=== PATIENT | male | born 1960 | race African-American/Black ===

== ENCOUNTER 2018-07-14 15:51 | Emergency (ER) | payer MEDICAID ==
[~2018-07-14] VITALS: Ht 167.6 cm; Wt 105.2 kg
[2018-07-14] MEDS ORDERED: fentaNYL PF VIAL 100 MCG/2 ML VIAL IV ONE (16:15)
[2018-07-14 16:19] LABS: BASO % 1 % (0-3); EOS % 1 % (0-3); HEMATOCRIT 46.5 % (39.0-53.0); HEMOGLOBIN 14.9 g/dL (13.0-17.5); LYMPH # 1.8 x10^3/uL (1.0-4.8); LYMPH % 34 % (24-48); MEAN CORPUSCULAR HEMOGLOBIN 26 pg (25-35); MEAN CORPUSCULAR HGB CONC 32 g/dL (31-37); MEAN CORPUSCULAR VOLUME 81 fL (79-100); MONO # 0.5 x10^3/uL (0.0-1.1); MONO % 10 % (0-9); NEUT # 2.9 x10^3uL (1.8-7.7); NEUT % 55 % (31-73); PLATELET COUNT 131 x10^3/uL (140-400); RED BLOOD COUNT 5.77 x10^6/uL (4.30-5.70); RED CELL DISTRIBUTION WIDTH 16.3 % (11.5-14.5); WHITE BLOOD COUNT 5.4 x10^3/uL (4.0-11.0)
[2018-07-14 16:26] LABS: CALCIUM 9.6 mg/dL (8.5-10.1); CREATININE 1.8 mg/dL (0.7-1.3); GFR 39.4; POTASSIUM 3.6 mmol/L (3.5-5.1)
[2018-07-14] MEDS ORDERED: DIPHTH,PERTUSS(ACELL),TET TOX 0.5 ML DISP.SYRIN. VAX IM ONE (16:30)
--- NOTE | 2018-07-14 17:13 | PHYS DOC ---
Past Medical History Past Medical History: Hypertension Past Surgical History: No Surgical History Smoking: Cigarettes Alcohol Use: Occasionally Drug Use: None Adult General Chief Complaint Chief Complaint: TRAUMA ALERT, right middle finger injury HPI HPI Patient is a 57 year old 57 right-handed male who presents with complaining of injury to right middle finger. Patient states he was trying to move a dresser e fell on tip of right middle finger with partial amputation of his finger. Patient rated his pain 10 over 10 and is other injuries or focal neuro deficit. Patient is not up-to-date with tetanus summarization.The case was activated as a trauma alert. Review of Systems Review of Systems Constitutional: Denies fever or chills [] Eyes: Denies change in visual acuity, redness, or eye pain [] HENT: Denies nasal congestion or sore throat [] Respiratory: Denies cough or shortness of breath [] Cardiovascular: No additional information not addressed in HPI [] GI: Denies abdominal pain, nausea, vomiting, bloody stools or diarrhea [] : Denies dysuria or hematuria [] Musculoskeletal: Denies back pain, reports joint pain [] Integument: Denies rash or skin lesions [] Neurologic: Denies headache, focal weakness or sensory changes [] Endocrine: Denies polyuria or polydipsia [] All other systems were reviewed and found to be within normal limits, except as documented in this note. Current Medications Current Medications Current Medications Medications (Trade) Dose Ordered Sig/Chanda Start Time Stop Time Status Last Admin Dose Admin Acetaminophen/ Hydrocodone Bitart (Lortab 5/325) 2 tab 1X ONCE 07/14/18 17:30 07/14/18 17:31 DC 07/14/18 17:16 2 TAB Cefazolin Sodium 50 ml @ 100 mls/hr 1X ONCE 07/14/18 16:15 07/14/18 16:44 DC 07/14/18 16:28 100 MLS/HR Diphtheria/ Tetanus/Acell Pertussis (Boostrix) 0.5 ml ONCE ONCE 07/14/18 16:30 07/14/18 16:31 DC 07/14/18 17:17 0.5 ML Fentanyl Citrate (Fentanyl 2ml Vial) 50 mcg 1X ONCE 07/14/18 16:15 07/14/18 16:16 DC 07/14/18 16:27 50 MCG Allergies Allergies Allergies Coded Allergies Type Severity Reaction Last Updated Verified No Known Drug Allergies 07/14/18 No Physical Exam Physical Exam Constitutional: Well developed, well nourished, mild distress, non-toxic appearance, smell of alcohol on breath. [] HENT: Normocephalic, atraumatic. Eyes: PERRLA, EOMI, conjunctiva normal, no discharge. [] Neck: Normal range of motion, no tenderness, supple, no stridor. [] Cardiovascular:Heart rate regular rhythm, no murmur [] Lungs & Thorax: Bilateral breath sounds clear to auscultation [] Extremities: Right middle finger with missing distal part of distal phalanx of finger and part of nailbed with mild bleeding, ROM intact, no edema. [] Neurologic: Alert and oriented X 3, normal motor function, normal sensory function, no focal deficits noted. [] Psychologic: Affect anxious, judgement normal, mood normal. [] Current Patient Data Vital Signs Vital Signs Date Time Temp Pulse Resp B/P (MAP) Pulse Ox O2 Delivery O2 Flow Rate FiO2 07/14/18 18:20 16 Room Air 07/14/18 18:00 82 139/84 (102) 95 07/14/18 15:56 98.6 98.6 Lab Values Laboratory Tests Test 07/14/18 16:10 White Blood Count 5.4 x10^3/uL (4.0-11.0) Red Blood Count 5.77 x10^6/uL (4.30-5.70) H Hemoglobin 14.9 g/dL (13.0-17.5) Hematocrit 46.5 % (39.0-53.0) Mean Corpuscular Volume 81 fL (79-100) Mean Corpuscular Hemoglobin 26 pg (25-35) Mean Corpuscular Hemoglobin Concent 32 g/dL (31-37) Red Cell Distribution Width 16.3 % (11.5-14.5) H Platelet Count 131 x10^3/uL (140-400) L Neutrophils (%) (Auto) 55 % (31-73) Lymphocytes (%) (Auto) 34 % (24-48) Monocytes (%) (Auto) 10 % (0-9) H Eosinophils (%) (Auto) 1 % (0-3) Basophils (%) (Auto) 1 % (0-3) Neutrophils # (Auto) 2.9 x10^3uL (1.8-7.7) Lymphocytes # (Auto) 1.8 x10^3/uL (1.0-4.8) Monocytes # (Auto) 0.5 x10^3/uL (0.0-1.1) Eosinophils # (Auto) 0.0 x10^3/uL (0.0-0.7) Basophils # (Auto) 0.0 x10^3/uL (0.0-0.2) Sodium Level 140 mmol/L (136-145) Potassium Level 3.6 mmol/L (3.5-5.1) Chloride Level 103 mmol/L (98-107) Carbon Dioxide Level 27 mmol/L (21-32) Anion Gap 10 (6-14) Blood Urea Nitrogen 24 mg/dL (8-26) Creatinine 1.8 mg/dL (0.7-1.3) H Estimated GFR (Cockcroft-Gault) 39.4 Glucose Level 108 mg/dL (70-99) H Calcium Level 9.6 mg/dL (8.5-10.1) Ethyl Alcohol Level 57 mg/dL (0-10) H Laboratory Tests 07/14/18 16:10 Laboratory Tests 07/14/18 16:10 EKG EKG [] Radiology/Procedures Radiology/Procedures [facility] [address] [place] [address] IMAGING REPORT Signed PATIENT: HAYDEN DALTNO ACCOUNT: [id number] : 1960 LOCATION: ER AGE: 57 SEX: M EXAM STATUS: DEP ER ORD. PHYSICIAN: SOLEDAD MUNSON MD REASON: right middle finger injury PROCEDURE: FINGER(S) RIGHT Three views right finger: Clinical History: Laceration to tip of middle finger. Technique: AP view of the hand, as well as lateral and oblique collimated views of the middle finger were obtained. Comparison: None. Findings: There is laceration of soft tissues of the tip of the middle finger and there is deformity of the tuft. The remaining visualized osseous structures appear normal. Impression: Probable avulsion of a portion of the tuft of the middle finger. Electronically signed by: Lyric Wheeler III, MD (07/14/2018 7:59 PM) [id number] DICTATED and SIGNED BY: LYRIC WHEELER III, MD DATE: 07/14/181958 Course & Med Decision Making Course & Med Decision Making Pertinent Labs and Imaging studies reviewed. (See chart for details) Evaluation of patient in ER showed 57 y/o male with traumatic amputation of tip of right middle finger without need for suture . Nonadhesive dressing was applied and ABX and Tdap was given beside IV and oral pain medication and patient was advised to follow up with oncall orthopedic surgeon. Dragon Disclaimer Dragon Disclaimer This electronic medical record was generated, in whole or in part, using a voice recognition dictation system. Departure Departure Impression: Primary Impression: Traumatic amputation of tip of finger of left hand Additional Impression: Alcohol abuse Disposition: HOME, SELF-CARE (at 1810) Condition: IMPROVED Referrals: PADMINI JIMENEZ II, MD Patient Instructions: Fingertip Injuries and Amputations Additional Instructions: Follow up with orthopedic on-call in 2-3 days Scripts Cephalexin (KEFLEX) 500 Mg Capsule 2 CAP PO Q12HR, #40 CAP Prov: SOLEDAD MUNSON MD 07/15/18 Hydrocodone/Apap 5-325 (NORCO 5-325 TABLET) 1 Each Tablet 1-2 TAB PO Q4-6HRS for pain, #14 TAB Prov: SOLEDAD MUNSON MD 07/14/18 Problem Qualifiers SOLEDAD MUNSON MD Jul 14, 2018 17:13
[2018-07-14] MEDS ORDERED: HYDROcodone/APAP 5/325MG 1 TAB TABLET PO ONE (17:30)
[2018-07-14 18:00] VITALS: BP 139/84
[2018-07-14] MEDS ORDERED: HYDR-3164 PO (18:15)
--- NOTE | 2018-07-14 20:02 | RAD ---
Three views right finger: Clinical History: Laceration to tip of middle finger. Technique: AP view of the hand, as well as lateral and oblique collimated views of the middle finger were obtained. Comparison: None. Findings: There is laceration of soft tissues of the tip of the middle finger and there is deformity of the tuft. The remaining visualized osseous structures appear normal. Impression: Probable avulsion of a portion of the tuft of the middle finger. Electronically signed by: Zachary Kelly III, MD (07/14/2018 7:59 PM) [id number]
[2018-07-15] MEDS ORDERED: CEPH-264 PO (06:30)
== END 2018-07-14 18:24 | disposition home or self-care (01) ==
LOC: ER 15:51
DX: S68.122A Partial traumatic metacarpophalangeal amputation of right middle finger, initial encounter (principal); I10 Essential (primary) hypertension; F10.10 Alcohol abuse, uncomplicated; Y90.2 Blood alcohol level of 40-59 mg/100 ml; F17.210 Nicotine dependence, cigarettes, uncomplicated; W20.8XXA Other cause of strike by thrown, projected or falling object, initial encounter; Y93.89 Activity, other specified; Y92.89 Other specified places as the place of occurrence of the external cause; Y99.8 Other external cause status
CPT/HCPCS: 36415; 73140; 80048; 85025; 90471; 90715; 96365; 96375; 99285; G0480; J0690; J3010